=== PATIENT | male | born 1955 | race Caucasian/White ===

== ENCOUNTER 2018-01-10 11:31 | Emergency (ER) | payer OTHER ==
[2018-01-10] MEDS ORDERED: BUPIVACAINE 0.5% PF 10 ML VIAL ONE (12:08)
[2018-01-10] MEDS ORDERED: TETANUS & DIPHTHERIA TOX,ADULT 0.5 ML VIAL ONE (12:09)
--- NOTE | 2018-01-10 13:06 | RAD REPORT ---
EXAM DESCRIPTION: Jonathan Cloud Left01/10/2018 12:54 pm CLINICAL HISTORY: Left leg pain status post injury FINDINGS: No fracture is seen A laceration involves the anterior soft tissues of the lower knee. A foreign body is not seen
--- NOTE | 2018-01-10 13:18 | EDPHYS ---
Physician Documentation [facility] Name: Sukhdev Holden Age: 62 yrs Sex: Male : 1955 Arrival Date: 01/10/2018 Time: 11:36 Bed 19 Private MD: out of town, doctor ED Physician Andre Lo HPI: 01/10 11:56 This 62 yrs old Male presents to ER via Ambulatory with complaints of Knee jmm Laceration. 11:56 The patient presents with an injury, a laceration. The complaints affect the left knee. jmm Onset: The symptoms/episode began/occurred acutely, just prior to arrival. Modifying factors: The symptoms are alleviated by nothing. the symptoms are aggravated by nothing. This is a 62 year old male with a hx of DM that presents to the ED with 2 left knee lacerations noted at the region of the proximal tibia. Patient states that a whiskey bottle shattered on his leg. Patient denies other injury. . Historical: - Allergies: 11:43 No Known Allergies; aj1 - Home Meds: 11:43 Jardiance 25 mg oral tab 1 tab once daily [Active]; lisinopril 20 mg Oral tab 1 tab aj1 once daily [Active]; 11:45 Jentadueto 2.5-1,000 mg oral tab 1 tab 2 times per day [Active]; glimepiride 4 mg Oral aj1 tab 1 tab once daily [Active]; simvastatin 20 mg Oral tab 1 tab once daily [Active]; Toujeo SoloStar subcutaneous subcutaneous [Active]; - PMHx: 11:45 Diabetes - NIDDM; Hyperlipidemia; Hypertension; aj1 - Immunization history:: Flu vaccine is not up to date. - Social history:: Smoking status: Patient/guardian denies using tobacco. - Ebola Screening: : Patient denies travel to an Ebola-affected area in the 21 days before illness onset. ROS: 11:56 Constitutional: Negative for fever, chills, and weight loss, Cardiovascular: Negative jmm for chest pain, palpitations, and edema, Respiratory: Negative for shortness of breath, cough, wheezing, and pleuritic chest pain. 11:56 MS/extremity: Positive for injury or acute deformity, laceration. 11:56 Skin: Positive for laceration(s). 11:56 All other systems are negative. Exam: 11:56 Head/Face: atraumatic. Chest/axilla: Normal chest wall appearance and motion. [facility] Cardiovascular: Regular rate and rhythm. No edema appreciated Respiratory: Normal respirations, no respiratory distress appreciated Abdomen/GI: Non distended, soft 11:56 Constitutional: The patient appears in no acute distress, alert, awake. 11:56 Skin: a 6 cm and a 4 cm laceration are noted ot the left proximal tibial region. . 11:56 Neuro: Orientation: is normal, Mentation: is normal, Memory: is normal. Vital Signs: 11:45 BP 124 / 84; Pulse 85; Resp 18; Temp 98.4; Pulse Ox 96% on R/A; Weight 117.93 kg (R); aj1 Height 6 ft. 0 in. (182.88 cm); Pain 6/10; 13:29 BP 136 / 74; Pulse 75; Resp 16; Pulse Ox 99% on R/A; Pain 5/10; em 11:45 Body Mass Index 35.26 (117.93 kg, 182.88 cm) aj1 Laceration: 13:15 Wound Repair of 6cm ( 2.4in ) subcutaneous laceration to left leg. Distal jmm neuro/vascular/tendon intact. Anesthesia: Local anesthetic administered with 5 mls of 0.5% marcaine. Wound prep: Moderate cleansing with betadine by me, Copious irrigation. Skin closed with 8 4-0 Prolene using simple sutures and sterile technique. Dressed with non-adherent dressing. Patient tolerated well. 13:15 Wound Repair of 4cm ( 1.6in ) subcutaneous laceration to left leg. Distal jmm neuro/vascular/tendon intact. Anesthesia: Local anesthetic administered with 3 mls of 0.5% marcaine. Wound prep: Simple cleansing with betadine by me, Copious irrigation. Skin closed with 6 4-0 Prolene using simple sutures and sterile technique. Dressed with non-adherent dressing. Patient tolerated well. 13:15 Wound Repair of 2cm ( 0.8in ) subcutaneous laceration to left leg. Distal jmm neuro/vascular/tendon intact. Anesthesia: Local anesthetic administered with 2 mls of 0.5% marcaine. Wound prep: Simple cleansing with betadine, Copious irrigation. Skin closed with 3 4-0 Prolene using simple sutures and sterile technique. Dressed with non-adherent dressing. Patient tolerated well. MDM: 11:49 Patient medically screened. jessica 13:15 Data reviewed: vital signs, nurses notes. fer 13:15 Counseling: I had a detailed discussion with the patient and/or guardian regarding: the [facility] historical points, exam findings, and any diagnostic results supporting the discharge/admit diagnosis, radiology results, the need for outpatient follow up, to return to the emergency department if symptoms worsen or persist or if there are any questions or concerns that arise at home. ED course: Patient given wound return precautions. . 01/10 11:55 Order name: Tib Fib Left XRAY; Complete Time: 13:10 [facility] Administered Medications: 12:32 Drug: Marcaine (0.5 %) 20 ml {Note: administered by JAMES Faulkner.} Volume: 10 ml; Route: em Infiltration; Site: wound; 13:27 Follow up: Response: No adverse reaction; Pain is decreased em 12:33 Drug: Tetanus-Diphtheria Toxoid Adult 0.5 ml {Insulation Manager: [employer]. Exp: em 02/25/2020. Lot #: [id number]. } Route: IM; Site: right deltoid; 13:27 Follow up: Response: No adverse reaction em Disposition: 01/10/18 13:17 Discharged to Home. Impression: Left Leg Laceration. - Condition is Stable. - Discharge Instructions: Laceration Care, Adult. - Prescriptions for Cephalexin 500 mg Oral Capsule - take 1 capsule by ORAL route every 6 hours for 10 days; 40 capsule. - Medication Reconciliation Form, Thank You Letter, Antibiotic Education, Prescription Opioid Use form. - Follow up: Private Physician; When: 7 - 10 days; Reason: Recheck today's complaints, Continuance of care, Staple/Suture removal, Re-evaluation by your physician. Addendum: 01/11/2018 14:23 Co-signature as Attending Physician, Andre Lo MD I agree with the assessment and c douglass plan of care. Signatures: Dispatcher [employer] Cynthia Sky, RN RN aj1 Andre Lo MD MD cha Mickail, Joel, PA PA jmm Munoz, Edgar, CERTIFIED PERSONAL TRAINER CERTIFIED PERSONAL TRAINER em Corrections: (The following items were deleted from the chart) 01/10 13:30 13:17 01/10/2018 13:17 Discharged to Home. Impression: Left Leg Laceration. Condition em is Stable. Forms are Medication Reconciliation Form, Thank You Letter, Antibiotic Education, Prescription Opioid Use. Follow up: Private Physician; When: 7 - 10 days; Reason: Recheck today's complaints, Continuance of care, Staple/Suture removal, Re-evaluation by your physician. ajay
--- NOTE | 2018-01-10 13:18 | ER ---
Nurse's Notes [facility] Name: Sukhdev Holden Age: 62 yrs Sex: Male : 1955 Arrival Date: 01/10/2018 Time: 11:36 Bed 19 Private MD: out of town, doctor Diagnosis: Left Leg Laceration Presentation: 01/10 11:40 Presenting complaint: Patient states: "I was carrying a bunch of stuff and I tripped aj1 and a glass bottle broke and cut my arm and my knee" Abrasion noted to left arm. Laceration noted to left knee. Transition of care: patient was not received from another setting of care. Onset of symptoms was January 10, 2018. Risk Assessment: Do you want to hurt yourself or someone else? Patient reports no desire to harm self or others. Initial Sepsis Screen: Does the patient meet any 2 criteria? No. Patient's initial sepsis screen is negative. Does the patient have a suspected source of infection? No. Patient's initial sepsis screen is negative. Care prior to arrival: None. 11:40 Method Of Arrival: Ambulatory aj1 11:40 Acuity: AMOR 4 aj1 Triage Assessment: 11:45 General: Appears in no apparent distress. comfortable, Behavior is calm, cooperative, aj1 appropriate for age. Pain: Complains of pain in left knee Pain currently is 6 out of 10 on a pain scale. Neuro: Level of Consciousness is awake, alert, obeys commands. Cardiovascular: Patient's skin is warm and dry. Respiratory: Airway is patent Respiratory effort is even, unlabored, Respiratory pattern is regular, symmetrical. Historical: - Allergies: 11:43 No Known Allergies; aj1 - Home Meds: 11:43 Jardiance 25 mg oral tab 1 tab once daily [Active]; lisinopril 20 mg Oral tab 1 tab aj1 once daily [Active]; 11:45 Jentadueto 2.5-1,000 mg oral tab 1 tab 2 times per day [Active]; glimepiride 4 mg Oral aj1 tab 1 tab once daily [Active]; simvastatin 20 mg Oral tab 1 tab once daily [Active]; Toujeo SoloStar subcutaneous subcutaneous [Active]; - PMHx: 11:45 Diabetes - NIDDM; Hyperlipidemia; Hypertension; aj1 - Immunization history:: Flu vaccine is not up to date. - Social history:: Smoking status: Patient/guardian denies using tobacco. - Ebola Screening: : Patient denies travel to an Ebola-affected area in the 21 days before illness onset. Screenin:43 Abuse screen: Denies threats or abuse. Nutritional screening: No deficits noted. em Tuberculosis screening: No symptoms or risk factors identified. Fall Risk None identified. Assessment: 12:10 General: Appears in no apparent distress. comfortable, Behavior is calm, cooperative, em had glass bottle in hand and tripped and broke bottle, denies hitting head, lac noted to left knee, superficial abrasions noted to left forearm. Pain: Complains of pain in left knee Pain currently is 6 out of 10 on a pain scale. Neuro: Level of Consciousness is awake, alert, obeys commands, Oriented to person, place, time, situation. Cardiovascular: Capillary refill < 3 seconds Patient's skin is warm and dry. Respiratory: Airway is patent Respiratory effort is even, unlabored, Respiratory pattern is regular, symmetrical. GI: Abdomen is round non-distended. : No deficits noted. EENT: No signs and/or symptoms were reported regarding the EENT system. Derm: Skin is intact, Skin is pink, warm \\T\\ dry. Musculoskeletal: Range of motion: intact in all extremities. Injury Description: Laceration sustained to left knee is clean, 2.6 to 7.5 cm long, bleeding moderately, was sustained 1-2 hours ago. a small amount of bleeding noted at this time. 12:20 Reassessment: Patient appears in no apparent distress at this time. I agree with above iw assessment by Reji Gallardo LVN. 13:01 Reassessment: Patient appears in no apparent distress at this time. Patient and/or em family updated on plan of care and expected duration. Pain level reassessed. fish hatchery inspector at bedside suturing pt. 13:27 Reassessment: Patient appears in no apparent distress at this time. Patient and/or em family updated on plan of care and expected duration. Pain level reassessed. Neosporin applied with 4 x 4s, Kerlix bandage applied to right knee. Vital Signs: 11:45 BP 124 / 84; Pulse 85; Resp 18; Temp 98.4; Pulse Ox 96% on R/A; Weight 117.93 kg (R); aj1 Height 6 ft. 0 in. (182.88 cm); Pain 6/10; 13:29 BP 136 / 74; Pulse 75; Resp 16; Pulse Ox 99% on R/A; Pain 5/10; em 11:45 Body Mass Index 35.26 (117.93 kg, 182.88 cm) aj1 ED Course: 11:36 Patient arrived in ED. mr 11:36 out of town, doctor is Private Physician. mr 11:42 Triage completed. aj1 11:45 Arm band placed on Patient placed in an exam room. aj1 11:46 Kaushik Choi PA is PHCP. [facility] 11:46 Andre Lo MD is Attending Physician. [facility] 11:57 Reji Gallardo LVN is Primary Nurse. em 12:43 Patient has correct armband on for positive identification. Bed in low position. Call em light in reach. Adult w/ patient. 12:47 Assist provider with laceration repair on left knee that was between 2.6 to 7.5 cm em using sutures. Set up tray. Performed by Kaushik RAMIREZ Dressed with 4X4s, Kerlix, Neosporin, Patient tolerated well. Patient did not have IV access during this emergency room visit. 12:54 Tib Fib Left XRAY In Process Unspecified. EDMS Administered Medications: 12:32 Drug: Marcaine (0.5 %) 20 ml {Note: administered by PA. Kaushik} Volume: 10 ml; Route: em Infiltration; Site: wound; 13:27 Follow up: Response: No adverse reaction; Pain is decreased em 12:33 Drug: Tetanus-Diphtheria Toxoid Adult 0.5 ml {Converting Supervisor: [employer]. Exp: em 02/25/2020. Lot #: [id number]. } Route: IM; Site: right deltoid; 13:27 Follow up: Response: No adverse reaction em Outcome: 13:17 Discharge ordered by . [facility] 13:29 Discharged to home ambulatory, with family. em 13:29 Condition: good 13:29 Discharge instructions given to patient, Instructed on discharge instructions, follow up and referral plans. medication usage, Demonstrated understanding of instructions, follow-up care, Prescriptions given X 1. 13:30 Patient left the ED. em Signatures: Dispatcher [employer] EDMS Cynthia Bustamante RN RN aj1 Kaushik Choi PA PA jmm Rivera, Maria mr Sami, Reji, TURNTABLE ENGINEER TURNTABLE ENGINEER Ese Salamanca, RN RN iw
== END 2018-01-10 13:30 | disposition home or self-care (01) ==
LOC: ER 11:31
PROC: 0JQP0ZZ Repair Left Lower Leg Subcutaneous Tissue and Fascia, Open Approach (ICD-10-PCS; principal; 2018-01-10)
DX: S81.012A Laceration without foreign body, left knee, initial encounter (principal); W25.XXXA Contact with sharp glass, initial encounter; Y93.9 Activity, unspecified; Y92.019 Unspecified place in single-family (private) house as the place of occurrence of the external cause; E11.9 Type 2 diabetes mellitus without complications; Z79.84 Long term (current) use of oral hypoglycemic drugs; I10 Essential (primary) hypertension; E78.5 Hyperlipidemia, unspecified
CPT/HCPCS: 90714; 99284